=== PATIENT | female | born 1970 | race Caucasian/White ===

== ENCOUNTER 2016-10-12 13:53 | Emergency (ER) | payer OTHER ==
[2016-10-12 14:05] VITALS: BP 132/83; PULSE 103; RESP 17; TEMP 98.6
--- NOTE | 2016-10-12 14:46 | ED ---
ENT HPI - General Chief complaint: Dental/Oral Stated complaint: Dental Time Seen by Provider: 10/12/16 14:07 Source: patient Mode of arrival: ambulatory Limitations: no limitations - History of Present Illness Initial comments: 38-year-old female presents to the clinic complaining of upper dental pain for the last few months. Patient states she got her teeth pulled and got plate put in in that she is not sitting well. Patient is followed up with the dentist but had to change dentist and she has a new specialist this week. Patient states he just don't fell well there constantly hurting and rubbing. Patient denies any fevers. No sinus drainage no headaches no ear pain no cough. MD complaint: tooth pain, other (Pain and upper gum line) Associated Symptoms: gum swelling - Related Data Home Medications Medication Instructions Recorded Confirmed Dextroamphetamine/Amphetamine 30 mg PO DAILY 01/12/16 10/12/16 [Adderall] Albuterol Inhaler [Ventolin Hfa 1 - 2 puff INHALATION RT-Q6H PRN 10/12/16 Inhaler] Ergocalciferol [Vitamin D2] 50,000 unit PO Q7D 10/12/16 10/12/16 Previous Rx's Medication Instructions Recorded HYDROcodone/APAP 5-325MG [[place] 1 tab PO Q6HR #20 tab 06/10/16 5-325] Hydrocodone/Acetaminophen [[place] 1 each PO Q4HR PRN #20 tab 10/12/16 5-325] Penicillin V Potassium [Pen Vee K] 500 mg PO BID #28 tab 10/12/16 Allergies Allergy/AdvReac Type Severity Reaction Status Date / Time ibuprofen [From Motrin] Allergy Rash/Hives Verified 10/12/16 14:33 latex Allergy Rash/Hives Verified 10/12/16 14:33 Review of Systems ROS Statement: Those systems with pertinent positive or pertinent negative responses have been documented in the HPI. ROS Other: All systems not noted in ROS Statement are negative. Constitutional: Denies: fever ENT: Reports: dental pain. Denies: ear pain, throat pain Respiratory: Denies: cough Past Medical History Past Medical History: No Reported History History of Any Multi-Drug Resistant Organisms: None Reported Past Surgical History: Tonsillectomy, Tubal Ligation, Uterine Ablation Additional Past Surgical History / Comment(s): bladder suspension, tendon release wrist x3 Past Psychological History: No Psychological Hx Reported Smoking Status: Never smoker Past Alcohol Use History: None Reported Past Drug Use History: None Reported General Exam Limitations: no limitations General appearance: alert, in no apparent distress Head exam: Present: atraumatic, normocephalic, normal inspection Eye exam: Present: normal appearance, PERRL, EOMI. Absent: scleral icterus, conjunctival injection, periorbital swelling ENT exam: Present: mucous membranes moist. Absent: normal exam (All upper teeth removed irritation to the gumline noted no abscess noted) Neck exam: Present: normal inspection. Absent: tenderness, meningismus, lymphadenopathy Respiratory exam: Present: normal lung sounds bilaterally. Absent: respiratory distress, wheezes, rales, rhonchi, stridor Cardiovascular Exam: Present: regular rate, normal rhythm, normal heart sounds. Absent: systolic murmur, diastolic murmur, rubs, gallop, clicks Course Vital Signs 10/12/16 14:02 Temperature 98.6 F Pulse Rate 103 H Respiratory 17 Rate Blood Pressure 132/83 O2 Sat by Pulse 100 Oximetry Medical Decision Making - Medical Decision Making Patient understands to follow up with dental specialist for further evaluation and treatment of med refills Disposition Clinical Impression: Gingivitis Disposition: HOME SELF-CARE Condition: Good Instructions: Gingivostomatitis (ED) Prescriptions: Hydrocodone/Acetaminophen [[place] 5-325] 1 each PO Q4HR PRN #20 tab PRN Reason: Pain Penicillin V Potassium [Pen Vee K] 500 mg PO BID #28 tab Time of Disposition: 14:46
== END 2016-10-12 14:54 | disposition home or self-care (01) ==
LOC: EC 13:53
DX: K05.10 Chronic gingivitis, plaque induced (principal); Z91.040 Latex allergy status; Z88.6 Allergy status to analgesic agent; Z79.899 Other long term (current) drug therapy
CPT/HCPCS: 99282

== ENCOUNTER 2016-11-03 23:42 | Emergency (ER) | payer OTHER ==
[2016-11-04] MEDS ORDERED: HYDROcodone/APAP 5-325MG 1 EACH TAB PO STA (00:52)
--- NOTE | 2016-11-04 00:54 | ED ---
ENT HPI - General Chief complaint: Dental/Oral Stated complaint: dental pain Time Seen by Provider: 11/04/16 00:30 Source: patient, RN notes reviewed, old records reviewed Mode of arrival: ambulatory Limitations: no limitations - History of Present Illness Initial comments: This is a 46 year old femael with chief complaint of upper gum pain from her dentures. She states that they do not fit well. She reports that she is seeing a dentist to have them resized. Denies any fever, chills, or absecss formation on her gums. She reports that she has to use a lot of dental adhesive. She states that she things her gums are reacting to the amount of adhesive she has to use, also she wears her dentures to sleep in. States that she was never told to take them out at night. Denies any difficulty opening and closing mouth, she was was here 2 weeks ago, placed on antibiotics and pain medication for same issue. States that she still is taking antibiotics. - Related Data Previous Rx's Medication Instructions Recorded HYDROcodone/APAP 5-325MG [[place] 1 tab PO Q6HR PRN #12 tab 11/04/16 5-325] Allergies Allergy/AdvReac Type Severity Reaction Status Date / Time ibuprofen [From Motrin] Allergy Rash/Hives Verified 11/03/16 23:50 latex Allergy Rash/Hives Verified 11/03/16 23:50 Review of Systems ROS Statement: Those systems with pertinent positive or pertinent negative responses have been documented in the HPI. ROS Other: All systems not noted in ROS Statement are negative. Past Medical History Past Medical History: No Reported History History of Any Multi-Drug Resistant Organisms: None Reported Past Surgical History: Tonsillectomy, Tubal Ligation, Uterine Ablation Additional Past Surgical History / Comment(s): bladder suspension, tendon release wrist x3 Past Psychological History: No Psychological Hx Reported Smoking Status: Never smoker Past Alcohol Use History: None Reported Past Drug Use History: None Reported General Exam - General Exam Comments Initial Comments: Well appearing 46 yaer old female, no distress. Limitations: no limitations General appearance: alert, in no apparent distress Head exam: Present: atraumatic, normocephalic, normal inspection Eye exam: Present: normal appearance, PERRL, EOMI. Absent: scleral icterus, conjunctival injection, periorbital swelling ENT exam: Present: normal exam, mucous membranes moist, TM's normal bilaterally. Absent: normal oropharynx (upper gums are worn, no evidence of abscess or erythema. ) Neck exam: Present: normal inspection. Absent: tenderness, meningismus, lymphadenopathy Respiratory exam: Present: normal lung sounds bilaterally. Absent: respiratory distress, wheezes, rales, rhonchi, stridor Cardiovascular Exam: Present: regular rate, normal rhythm, normal heart sounds. Absent: systolic murmur, diastolic murmur, rubs, gallop, clicks GI/Abdominal exam: Present: soft, normal bowel sounds. Absent: distended, tenderness, guarding, rebound, rigid Extremities exam: Present: normal inspection, full ROM, normal capillary refill. Absent: tenderness, pedal edema, joint swelling, calf tenderness Back exam: Present: normal inspection Neurological exam: Present: alert, oriented X3, CN II-XII intact Psychiatric exam: Present: normal affect, normal mood Skin exam: Present: warm, dry, intact, normal color. Absent: rash Course Vital Signs 11/03/16 11/04/16 23:48 01:05 Temperature 98.5 F 97.2 F L Pulse Rate 115 H 98 Respiratory 20 16 Rate Blood Pressure 183/95 137/89 O2 Sat by Pulse 98 98 Oximetry Medical Decision Making - Medical Decision Making This is a 46 year old with gum pain from her dentures. They do not fit properly and she has to use a lot of denture adhesive. PAtient advised to not wear dentures to bed. Discussed following up with dentist. Discharged with pain medication, advised to contiinue antibioitics previously prescribed. Disposition Clinical Impression: Pain in gums, Denture irritation Disposition: HOME SELF-CARE Condition: Good Instructions: Gingivostomatitis (ED) Additional Instructions: Patient advised to follow-up with her dentist. Avoid wearing her dentures at night. Return to the emergency department if any alarming signs or symptoms occur. Prescriptions: HYDROcodone/APAP 5-325MG [[place] 5-325] 1 tab PO Q6HR PRN #12 tab PRN Reason: Pain Referrals: None,Stated [Primary Care Provider] - 1-2 days Time of Disposition: 00:54
[2016-11-04 01:08] VITALS: BP 137/89; PULSE 98; RESP 16; TEMP 97.2
== END 2016-11-04 01:09 | disposition home or self-care (01) ==
LOC: EC 23:42
DX: K08.89 Other specified disorders of teeth and supporting structures (principal); K06.8 Other specified disorders of gingiva and edentulous alveolar ridge; Z91.040 Latex allergy status; Z88.6 Allergy status to analgesic agent
CPT/HCPCS: 99282

== ENCOUNTER 2016-12-11 10:52 | Emergency (ER) | payer OTHER ==
[2016-12-11 11:20] VITALS: BP 156/91; PULSE 101; RESP 18; TEMP 98.1
--- NOTE | 2016-12-11 11:35 | ED ---
General Adult HPI - General Chief complaint: Dental/Oral Stated complaint: DENTAL PAIN Time Seen by Provider: 12/11/16 11:15 Source: patient, RN notes reviewed Mode of arrival: ambulatory Limitations: no limitations - History of Present Illness Initial comments: This is a 46-year-old female presents emergency Department complaining that she has no fitting dentures to the point where her upper gums have been worn raw. Patient states she is post have a dental appointment this week but he canceled it and it's not till next week now. Patient states she only can take Tylenol for pain at home and that has not been enough for the pain. Patient states Motrin upsets her stomach. Patient states [place] usually does help enough. Patient does not have a primary medical care doctor. Patient denies any lumps or swelling or fluctuant areas. Patient denies any drainage. Patient denies any fever or chills. Patient states his been ongoing problem but she is getting worse and worse. - Related Data Home Medications Medication Instructions Recorded Confirmed No Known Home Medications [No 12/11/16 12/11/16 Known Home Medications] Allergies Allergy/AdvReac Type Severity Reaction Status Date / Time banana Allergy Rash/Hives Verified 12/11/16 11:31 codeine Allergy Rash/Hives Verified 12/11/16 11:31 ibuprofen [From Motrin] Allergy Rash/Hives Verified 12/11/16 11:31 latex Allergy Rash/Hives Verified 12/11/16 11:31 Review of Systems ROS Statement: Those systems with pertinent positive or pertinent negative responses have been documented in the HPI. ROS Other: All systems not noted in ROS Statement are negative. Past Medical History Past Medical History: No Reported History History of Any Multi-Drug Resistant Organisms: None Reported Past Surgical History: Tonsillectomy, Tubal Ligation, Uterine Ablation Additional Past Surgical History / Comment(s): bladder suspension, tendon release wrist x3 Past Psychological History: No Psychological Hx Reported Smoking Status: Never smoker Past Alcohol Use History: None Reported Past Drug Use History: None Reported General Exam - General Exam Comments Initial Comments: GENERAL Patient is well-developed and well-nourished. Patient is in mild distress. EYES Patient's pupils are equal and round. Extraocular motion is intact MOUTH Patient's upper gum seems abraded and is tender to touch there is no swelling there is no area of fluctuance. SKIN Unremarkable NEURO The patient is alert and oriented 3 PYSCH Patient has normal interpersonal interactions. Limitations: no limitations Course Vital Signs 12/11/16 11:16 Temperature 98.1 F Pulse Rate 101 H Respiratory 18 Rate Blood Pressure 156/91 O2 Sat by Pulse 99 Oximetry Medical Decision Making - Medical Decision Making Patient states she has not taken any narcotics recently. Patient states she would be clean in her urine. So I told her I will get a urine if she is clean and give her pain medications for her gums. Patient shortly thereafter gave us a urine and then proceeded to walk out AMA - Lab Data Lab Results 12/11/16 Range/Units 11:30 Urine Opiates Screen Detected H (NotDetected) Ur Oxycodone Screen Not Detected (NotDetected) Urine Methadone Screen Not Detected (NotDetected) Ur Propoxyphene Screen Not Detected (NotDetected) Ur Barbiturates Screen Not Detected (NotDetected) U Tricyclic Antidepress Not Detected (NotDetected) Ur Phencyclidine Scrn Not Detected (NotDetected) Ur Amphetamines Screen Detected H (NotDetected) U Methamphetamines Scrn Not Detected (NotDetected) U Benzodiazepines Scrn Not Detected (NotDetected) Urine Cocaine Screen Not Detected (NotDetected) U Marijuana (THC) Screen Not Detected (NotDetected) Disposition Clinical Impression: Drug-seeking behavior Disposition: Left Against Medical Advice Referrals: None,Stated [Primary Care Provider] - 1-2 days Time of Disposition: 12:19
== END 2016-12-11 12:22 | disposition left against medical advice (07) ==
LOC: EC 10:52
DX: Z76.5 Malingerer [conscious simulation] (principal); K08.89 Other specified disorders of teeth and supporting structures; Z88.5 Allergy status to narcotic agent; Z88.6 Allergy status to analgesic agent; Z91.018 Allergy to other foods; Z91.040 Latex allergy status
CPT/HCPCS: 80306; 99283

== ENCOUNTER 2018-01-19 07:01 | Emergency (ER) | payer OTHER ==
[2018-01-19] MEDS ORDERED: KETOROLAC 60 MG/2 ML VIAL IM STA (07:12)
--- NOTE | 2018-01-19 07:14 | ED ---
General Adult HPI - General Chief complaint: Extremity Injury, Upper Stated complaint: Elbow Injury Time Seen by Provider: 01/19/18 07:01 Source: patient, RN notes reviewed Mode of arrival: ambulatory Limitations: no limitations - History of Present Illness Initial comments: This is a 47-year-old female who presents emergency department stating that a few days ago she was in [place] and she hit her elbow. Patient at the time thought it was just a bruise and didn't get it evaluated. Patient states since then he continues to hurt and she believes that's a little bit swollen on the lateral aspect of her right elbow. Patient states she has full range of motion but with pain. Patient denies any other injury at this time. Patient denies any wrist pain him pain or finger pain. Patient denies any shoulder pain. - Related Data Previous Rx's Medication Instructions Recorded traMADol HCL [Ultram] 50 mg PO Q6HR PRN 3 Days #10 tab 01/19/18 Allergies Allergy/AdvReac Type Severity Reaction Status Date / Time banana Allergy Rash/Hives Verified 01/19/18 07:07 codeine Allergy Rash/Hives Verified 01/19/18 07:07 ibuprofen [From Motrin] Allergy Rash/Hives Verified 01/19/18 07:07 latex Allergy Rash/Hives Verified 01/19/18 07:07 Review of Systems ROS Statement: Those systems with pertinent positive or pertinent negative responses have been documented in the HPI. ROS Other: All systems not noted in ROS Statement are negative. Past Medical History Past Medical History: Hypertension History of Any Multi-Drug Resistant Organisms: None Reported Past Surgical History: Tonsillectomy, Tubal Ligation, Uterine Ablation Additional Past Surgical History / Comment(s): bladder suspension, tendon release wrist x3 Past Psychological History: No Psychological Hx Reported Smoking Status: Never smoker Past Alcohol Use History: None Reported Past Drug Use History: None Reported General Exam - General Exam Comments Initial Comments: GENERAL Patient is well-developed and well-nourished. Patient is in mild distress. EYES Patient's pupils are equal and round. Extraocular motion is intact SKIN Unremarkable NEURO The patient is alert and oriented 3 PYSCH Patient has normal interpersonal interactions. MUSCULOSKELETAL Lateral aspect of the right elbow is very tender to palpate Limitations: no limitations Course Vital Signs 01/19/18 07:05 Temperature 97.9 F Pulse Rate 88 Respiratory 18 Rate Blood Pressure 175/101 O2 Sat by Pulse 100 Oximetry Medical Decision Making - Medical Decision Making X-ray of the elbow shows no acute fracture. Disposition Clinical Impression: Epicondylitis, lateral Disposition: HOME SELF-CARE Condition: Good Instructions: Tennis Elbow (ED) Prescriptions: traMADol HCL [Ultram] 50 mg PO Q6HR PRN 3 Days #10 tab PRN Reason: Pain Is patient prescribed a controlled substance at d/c from ED?: Yes When asked, does pt state using other controlled substances?: Yes If prescribed controlled substance>3 days was MAPS reviewed?: Prescribed <3 Days If Rx opioid, was Start Talking consent form obtained?: No Referrals: None,Stated [Primary Care Provider] - 1-2 days Time of Disposition: 07:54
--- NOTE | 2018-01-19 07:35 | XR ---
EXAMINATION TYPE: XR elbow complete RT DATE OF EXAM: 01/19/2018 COMPARISON: NONE HISTORY: 47 year-old female right elbow pain after injury TECHNIQUE: 3 views FINDINGS: Very minimal bony spurring at the lateral epicondyle could represent mild changes of common extensor tendinopathy. No acute fracture, subluxation, or dislocation. No elbow joint effusion. Small enthesop athic change at the olecranon. IMPRESSION: No acute osseous abnormality seen.
[2018-01-19 08:09] VITALS: BP 125/80; PULSE 70; RESP 16; TEMP 98
== END 2018-01-19 08:08 | disposition home or self-care (01) ==
LOC: EC 07:01
DX: M77.11 Lateral epicondylitis, right elbow (principal); Z91.018 Allergy to other foods; Z91.040 Latex allergy status; Z88.5 Allergy status to narcotic agent; Z88.6 Allergy status to analgesic agent
CPT/HCPCS: 73080; 99283; 96372; J1885

== ENCOUNTER → 2024-04-16 | Outpatient (CLI) | payer MEDICARE, OTHER ==
--- NOTE | 2024-04-20 09:49 | MM ---
Reason for Exam: Screening (asymptomatic). Patient History: Menarche at age 11. First Full-Term at age 23. Postmenopausal. Patient has history of breast feeding. Paternal aunt had breast cancer. Risk Values: Lalita 5 year model risk: 1.4%. NCI Lifetime model risk: 8.9%. Prior Study Comparison: No prior studies available for comparison. Tissue Density: The breasts are heterogeneously dense, which may obscure small masses. Findings: Analyzed By CAD. There is no suspicious group of microcalcifications or new suspicious mass in either breast. Overall Assessment: Benign, BI-RAD 2 Management: Screening Mammogram of both breasts in 1 year. . Patient should continue monthly self-breast exams. A clinical breast exam by your physician is recommended on an annual basis. This exam should not preclude additional follow-up of suspicious palpable abnormalities. Note on Lalita scores and lifetime risk: 1. A Lalita score greater than 3% is considered moderate risk. If this is the case, consider specialist referral to assess eligibility for a risk reducing agent. 2. If overall lifetime risk for the development of breast cancer is 20% or higher, the patient may qualify for future screening with alternating mammogram and breast MRI. [facility], , 04/20/2024 9:46 AM. Electronically signed and approved by: Bruce Puga M.D. [facility]
== END | disposition home or self-care (01) ==
LOC: RADMAMWWP 07:58
PROVIDERS: ATTEND Family Medicine
CPT/HCPCS: 77063; 77067